=== PATIENT | female | born 1950 | race Caucasian/White ===

== ENCOUNTER → 2016-11-08 | Outpatient (CLI) | payer OTHER ==
[~2016-11-08] MED LIST: ALBU18002 INH; ALBUAER2 INH; ATV5 PO; AZEL0.15 NAE; CYCL0.052 OPB; DICL1SOL6 EXT; EFFSR150 PO; FLUT0.15 INH; FLX10 PO; GLC/500 PO; HYDR0.5T PO; HYDR25CA PO; IBUP-1459 PO; LEVO50TA6 PO; LVTUNK PO; MULTCHW PO; OXYC-57 PO; PANT40TA PO; PREMARIN VA; TURM1CAP4 PO; WELLBUTRIN PO
[2016-11-08 14:46] LABS: BASO % 0.7 %; BASO ABS # 0.04 K/uL (0-0.2); COMPLETE YES; EOS % 4.3 %; HEMATOCRIT 36.6 % (37-47); IG% 0.2 %; LYMPH % 43.1 %; LYMPH ABS # 2.52 K/uL (1.2-3.4); MEAN CELL VOLUME 88.6 fL (80-100); MEAN CORPUSCULAR HEMOGLOBIN 31.2 pg (25-34); MEAN CORPUSCULAR HGB CONC 35.2 g/dl (32-36); MEAN PLATELET VOLUME 9.3 fL (7.4-10.4); MONO % 8.4 %; NEUT % 43.3 %; PLATELET COUNT 302 K/uL (130-400); RED BLOOD COUNT 4.13 M/uL (4.2-5.4); WHITE BLOOD COUNT 5.85 K/uL (4.8-10.8)
[2016-11-08 15:14] LABS: BLOOD UREA NITROGEN 16 mg/dl (7-18); BUN/CREATININE RATIO 17.6 (10-20); CALCIUM 9.2 mg/dl (8.5-10.1); CARBON DIOXIDE 30 mmol/L (21-32); CHLORIDE 105 mmol/L (98-107); CREATININE 0.91 mg/dl (0.60-1.20); GLUCOSE 68 mg/dl (70-99); POTASSIUM 3.9 mmol/L (3.5-5.1); SODIUM 144 mmol/L (136-145)
== END | disposition home or self-care (01) ==
LOC: C.CPL 13:40
PROVIDERS: ATTEND Orthopaedic Surgery
DX: Z01.810 Encounter for preprocedural cardiovascular examination (principal); Z01.812 Encounter for preprocedural laboratory examination; M75.42 Impingement syndrome of left shoulder; R00.1 Bradycardia, unspecified

== ENCOUNTER → 2016-11-18 | Day surgery (SDC) | payer OTHER ==
[2016-11-11 09:54] VITALS: Ht 157.5 cm; Wt 63.6 kg
[~2016-11-18] VITALS: Ht 157.5 cm; Wt 63.6 kg
[~2016-11-18] MED LIST changes: -ALBUAER2 INH; +ATROPINE SULFATE 0.1 MG/ML 5ML SYR IV PRN; -ATV5 PO; +BUPIVACAINE/EPINEPHRINE 0.25% 1:200,000 30 ML VIAL ONE; +CLINDAMYCIN PHOS 150 MG/ML 2 ML VIAL IV SCH; +DEXAMETHASONE SOD INJ 4 MG/ML VIAL IV PRN; +DEXAMETHASONE SOD INJ 4 MG/ML VIAL ONE; -EFFSR150 PO; +EpHEDrine SULFATE INJ 50 MG/ML AMP IV PRN; +EpHEDrine SULFATE INJ 50 MG/ML AMP ONE; +EpINEphrine INJ 1MG/ML AMP 1 MG/ML AMP ONE; +FENTANYL CITRATE INJ 50 MCG/1 ML 2 ML VIAL IV PRN; +FENTANYL CITRATE INJ 50 MCG/1 ML 2 ML VIAL ONE; -FLX10 PO; -HYDR0.5T PO; -IBUP-1459 PO; +KETOROLAC TROMETHAMINE 30 MG/ML VIAL IV. PRN; +LABETALOL HCL IV 5 MG/ML 20ML IV PRN; +LACTATED RINGER'S 1000ML 1,000 ML IV SCH; +LACTATED RINGER'S 1000ML 500 ML IV SCH; +LIDOCAINE HCL 1% MPF 2 ML VIAL ONE; +LIDOCAINE HCL 2% 2 ML VIAL (20MG/ML) ONE; -LVTUNK PO; +METOCLOPRAMIDE HCL INJ 5 MG/ML 2 ML VIAL IV PRN; +METOCLOPRAMIDE HCL INJ 5 MG/ML 2 ML VIAL ONE; +MIDAZOLAM HCL 1 MG/ML 2ML VIAL ONE; +MoRPHine SULFATE 10 MG/ML CARP/VIAL IV PRN; +ONDANSETRON INJ 2 MG/ML 2 ML VIAL IV PRN; +ONDANSETRON INJ 2 MG/ML 2 ML VIAL ONE; +OXYCODONE/ACETAMINOPHEN 5-325 TAB PO PRN; +PHENYLEPHRINE 100MCG/ML 5ML SYR IV PRN; +PROPOFOL IV EMULSION 10 MG/ML 20 ML VIAL IV ONE; +ROPIVACAINE 0.5% 5 MG/ML 30 ML VIAL ONE; +SODIUM CHLORIDE 0.9% 1000ML 1,000 ML IV SCH; -WELLBUTRIN PO
--- NOTE | 2016-11-18 08:53 | History & Physical Bridge - [place] ---
H&P Re-Evaluation Bridge Note: I have examined the patient, reviewed the History & Physical and in the interval since the performance of the History & Physical I have noted the following changes of clinical significance: No changes noted
--- NOTE | 2016-11-18 11:15 | [facility] Post Operative Brief Note ---
Immediate Operative Summary Operative Date Nov 18, 2016. Pre-Operative Diagnosis Left Shoulder Impingement and Biceps Tendinopathy Post-Operative Diagnosis Same Procedure(s) Performed Left Shoulder Arthroscopy, Small Rotator Cuff Repair, Acromioplasty, Biceps Tenotomy, Distal Clavicle Resection Surgeon Dr. Boone Barrel Washer Surgeon(s) Rafaela Sadler PA-C Estimated Blood Loss Minimal Findings as above Specimens None Complication(s) None Disposition Recovery Room / PACU
--- NOTE | 2016-11-18 11:19 | Discharge Instructions-SurgCtr ---
Discharge Instructions Date of Service Nov 18, 2016. Visit Reason for Visit: Left Shoulder Impingement Syndrome Biceps Tendinit Discharge Discharge Diagnosis / Problem: SAME ABOVE Discharge Goals Goal(s): Decrease discomfort, Improve function Medications Stopped Medications Name(s): metformin last dose tuesday Restart Stopped Medication(s): DECEMBER RESTART 11/19/2016 Activity Recommendations Activity Limitations: as noted below Lifting Limitations: until after follow-up appointment Exercise/Sports Limitations: until after follow-up appointment Shower/Bathe: tomorrow Anesthesia . Post Anesthesia Instructions: If you have had General Anesthesia or IV Sedation: * Do not drive today. * Resume driving when surgeon permits. * Do not make important decisions or sign legal documents today. * Call surgeon for: 1. Temperature elevations greater than 101 degrees F. 2. Uncontrollable pain. 3. Excessive bleeding. 4. Persistent nausea and vomiting. 5. Medication intolerance (nausea, vomiting or rash). * For nausea and vomiting use only clear liquids such as: tea, soda, bouillon until nausea subsides, then gradually increase diet as tolerated. * If you have any concerns or questions, call your surgeon's office. If physician is unavailable and it is an emergency, call 911 or go to the nearest emergency room. . Instructions / Follow-Up Instructions / Follow-Up MEDICATIONS: * Resume previous medications unless instructed otherwise by your surgeon. * Always take pain medication on a full stomach or with food to avoid upset stomach. * Do not drink alcohol or drive while taking narcotics. * Ibuprofen or Tylenol may be taken if narcotic not needed. SPECIAL CARE INSTRUCTIONS: __ None _X_ Keep extremity elevated and iced x 48 hours; apply ice 20-30 minutes 8-10 times/day. May remove at night. _X_ Sling (MAY REMOVE AFTER 48 HOURS ONLY TO SHOWER AND FOR THERAPY) _X_24 hrs/day __ Remove at night __ Shoulder Immobilizer __ 24 hrs/day __ Remove at night _X_ Dressing __ Maintain until seen in office, may shower with plastic over site _X_ Remove dressings in 24-48 hours and then may shower _X_ Cover incisions with band-aids after showering __ Do not remove steri-strips Call physician if chills or temperature rises above 102 degrees or pain unrelieved by prescribed pain medications at . . Diet Recommendations Home Diet: no limitations Fluid Restriction: None Procedures Procedures Performed: Left Shoulder Arthroscopy, Small Rotator Cuff Repair, Acromioplasty, Biceps Tenotomy, Distal Clavicle Resection Pending Studies Studies pending at discharge: no Work Instructions Return To Work: after follow-up Lifting Limitations: NO LIFTING WITH LEFT ARM Medical Emergencies . Who to Call and When: Medical Emergencies: If at any time you feel your situation is an emergency, please call 911 immediately. . Non-Emergent Contact Non-Emergency issues call your: Primary Care Provider Call Non-Emergent contact if: you have a fever, temperature is above 101.5 . . "Provider Documentation" section prepared by Camron Sadler.
--- NOTE | 2016-11-18 11:24 | OPERATIVE REPORT ---
DATE OF OPERATION: 11/18/2016 PREOPERATIVE DIAGNOSIS: Severe external impingement with small rotator cuff tear, left shoulder. POSTOPERATIVE DIAGNOSIS: Same. PROCEDURE: Left shoulder diagnostic arthroscopy with extensive debridement, distal clavicle resection to include co-planing the undersurface of the clavicle, acromioplasty, small degenerative rotator cuff repair and biceps tenotomy. SURGEON: Dr. Jacques Boone. MACHINE STITCHER: Epifanio Sadler PA-C, whose assistance was necessary for positioning the arm and helping with instrumentation. ANESTHESIA: General with a left interscalene nerve block. COMPLICATIONS: None. CONDITION: Stable to PACU. INDICATIONS: Marlin is a pleasant 65-year-old female who presented to my office with a year long history of left shoulder pain. She did not have any traumatic event. MRI and clinical examination were diagnostic for severe external impingement and partial rotator cuff tear. After failing conservative treatment, she elected to undergo arthroscopy. DESCRIPTION OF PROCEDURE: On 11/18/2016, she arrived at [facility] for the above procedure. She was seen in the preoperative holding area and the operative extremity was identified and signed. She was given a preoperative antibiotic and a left interscalene nerve block. She was taken back to the operating room, laid on the table in supine position and put under general anesthesia. She was then put into the beachchair position. The left shoulder was prepped and draped in sterile fashion. Time-out was done and the patient and operative extremity was properly identified. A scope was introduced into the posterior portal. Diagnostic arthroscopy showed no cartilage damage to the humeral head or the glenoid. There was some fraying of the anterior and superior labrum. The biceps tendon was very red on the dorsal aspect. I did not see much tearing of the rotator cuff from the articular side. An anterior portal was made. A shaver was used to do a limited debridement of the intraarticular structures and the biceps tendon was arthroscopically tenotomized. The scope was then put into the subacromial space. A lateral portal was made. A shaver was used to do a complete subacromial and subdeltoid bursectomy. There was a lot of abrasive ruvalcaba underneath the anterior acromion on the rotator cuff. The coracoacromial ligament was teased off the undersurface of the acromion and a 5-0 nabeel was used to complete an acromioplasty of a Bigliani type 3 acromion. A shaver was used to remove any excess debris. There was very large osteophytes of the inferior aspect of the distal clavicle. A 5-0 nabeel was used to complete a distal clavicle resection to remove those inferior osteophytes. Attention was then turned to the rotator cuff. There was a small near full thickness degenerative rotator cuff tear. An additional anterolateral portal was made and Becky cannula was placed. The tuberosity was prepared with a ring curette. The rotator cuff was fixed with an Arthrex modified SpeedBridge configuration with a single 4.75-mm BioComposite SwiveLock suture anchor and 2 FiberTapes brought down to a lateral row SwiveLock suture anchor. This gave a nice knotless SpeedBridge repair. Multiple pictures were taken. The scope was placed back into the glenohumeral joint and the articular margin of the rotator cuff had been restored. Arthroscopic instruments were removed. Portal sites were closed with 3-0 nylon. She was then placed in a soft dressing and a regular arm sling. She was then extubated, transferred to a litter and taken to the postanesthesia care unit in stable condition. She tolerated the procedure well. I attest to the content of the Intraoperative Record and any orders documented therein. Any exceptio ns are noted below.
--- NOTE | 2016-11-18 12:00 | Anesthesia Progress Nt - [facility] ---
Anesthesia Post Op Note Date & Time Nov 18, 2016 at 11:59 Vital Signs Pain Intensity: 0 Vital Signs Past 12 Hours Date Time Temp Pulse Resp B/P Pulse Ox O2 Delivery O2 Flow Rate FiO2 11/18/16 11:44 36.5 73 16 102/59 99 Room Air 11/18/16 11:31 75 21 100 11/18/16 11:31 75 21 11/18/16 11:30 99/53 11/18/16 11:27 36.4 90 16 102/59 99 Mask 6 11/18/16 11:26 77 18 100 11/18/16 11:26 79 18 11/18/16 11:25 116/54 11/18/16 11:21 74 17 11/18/16 11:21 74 17 100 11/18/16 11:20 121/55 11/18/16 11:19 102/59 11/18/16 10:06 65 8 100 11/18/16 10:06 65 11/18/16 10:05 62 11 100 11/18/16 10:05 62 11/18/16 10:00 64 11/18/16 10:00 65 0 103/59 100 11/18/16 09:55 74 25 95 11/18/16 09:55 63 25 11/18/16 09:52 94/49 11/18/16 09:45 56 11/18/16 09:45 57 99 11/18/16 09:40 66 99 11/18/16 09:40 60 11/18/16 09:35 56 17 11/18/16 09:35 59 17 98 11/18/16 09:30 52 23 100 11/18/16 09:30 53 23 11/18/16 08:50 36.8 59 16 112/48 97 Room Air Notes Mental Status: alert / awake / arousable, participated in evaluation Pt Amnestic to Procedure: Yes Nausea / Vomiting: adequately controlled Pain: adequately controlled Airway Patency, RR, SpO2: stable & adequate BP & HR: stable & adequate Hydration State: stable & adequate Anesthetic Complications: no major complications apparent
[2016-11-18 12:10] VITALS: TEMP 36.5
[2016-11-18 12:33] VITALS: BP 96/49; PULSE 69; O2SAT 97
== END | disposition home or self-care (01) ==
LOC: X.SURG 08:30
PROVIDERS: ATTEND Orthopaedic Surgery
DX: M75.102 Unspecified rotator cuff tear or rupture of left shoulder, not specified as traumatic (principal); M75.42 Impingement syndrome of left shoulder; E11.9 Type 2 diabetes mellitus without complications; E03.9 Hypothyroidism, unspecified; Z80.8 Family history of malignant neoplasm of other organs or systems; Z98.890 Other specified postprocedural states; Z98.51 Tubal ligation status; Z88.0 Allergy status to penicillin; Z88.8 Allergy status to other drugs, medicaments and biological substances

== ENCOUNTER 2024-09-19 10:35 | Inpatient (IN) ==
--- NOTE | 2024-08-06 15:02 | PAT Medication Instructions ---
Medication Instructions Date of Service August 06, 2024 Home Medications Medication Instructions Recorded clonazepam 0.5 mg tablet 0.75 mg (1.5 x 0.5 mg) PO .qhs #45 06/26/24 tabs citalopram 20 mg tablet 20 mg PO QAM cyclosporine 0.05 % eye drops in a dropperette (Restasis) 1 drp ophthalmic (eye) Q12H esomeprazole magnesium 40 mg capsule,delayed release 40 mg PO QAM rosuvastatin 10 mg tablet 10 mg PO QPM temazepam 15 mg capsule 15 mg PO QPM clonazepam 0.5 mg tablet 0.75 mg (1.5 x 0.5 mg) PO .qhs acetaminophen 325 mg tablet (Tylenol) 325 mg PO QID PRN diclofenac sodium 1 % topical gel 4 g topical QID PRN etanercept 50 mg/mL (1 mL) subcutaneous syringe (Enbrel) 1 mg subcut WK fluticasone propionate 50 mcg/actuation nasal spray,suspension 1 spray intranasal BID levocetirizine 5 mg tablet 5 mg PO QAM meclizine 12.5 mg tablet 12.5 mg PO BID PRN metformin 500 mg tablet 500 mg PO BID ASK your prescriber and surgeon etanercept 50 mg/mL (1 mL) subcutaneous syringe (Enbrel) 1 mg subcut WK STOP taking 24 hours before surgery diclofenac sodium 1 % topical gel 4 g topical QID PRN DO NOT take the morning of surgery levocetirizine 5 mg tablet 5 mg PO QAM metformin 500 mg tablet 500 mg PO BID Take morning of surgery With a small sip of water, OTHERWISE NOTHING TO EAT OR DRINK AFTER MIDNIGHT: citalopram 20 mg tablet 20 mg PO QAM cyclosporine 0.05 % eye drops in a dropperette (Restasis) 1 drp ophthalmic (eye) Q12H esomeprazole magnesium 40 mg capsule,delayed release 40 mg PO QAM acetaminophen 325 mg tablet (Tylenol) 325 mg PO QID PRN(if needed) fluticasone propionate 50 mcg/actuation nasal spray,suspension 1 spray intranasal BID meclizine 12.5 mg tablet 12.5 mg PO BID PRN(if needed) Take evening before surgery cyclosporine 0.05 % eye drops in a dropperette (Restasis) 1 drp ophthalmic (eye) Q12H rosuvastatin 10 mg tablet 10 mg PO QPM temazepam 15 mg capsule 15 mg PO QPM clonazepam 0.5 mg tablet 0.75 mg (1.5 x 0.5 mg) PO .qhs acetaminophen 325 mg tablet (Tylenol) 325 mg PO QID PRN(if needed) fluticasone propionate 50 mcg/actuation nasal spray,suspension 1 spray intranasal BID metformin 500 mg tablet 500 mg PO BID Other Notes If you have any questions please call us at [phone] or [phone] or [phone] or [phone]
--- NOTE | 2024-08-14 14:20 | Anesthesiology Consultation ---
Date of Service August 14, 2024 Assessment & Plan (1) Encounter for pre-operative examination: Chart Review Chart Review: Acceptable Risk for Surgery (pending surgeon ordered PCP clearance ) and Patient seen in Pre Admission Testing - Awaiting PCP clearance ([facility]) - please fax preop testing to PCP office - Check BSG AM DOS Per PAT appt on 08/14/24, no recent illness/disease exposures, illness related symptoms, or recent illness/disease positive tests. Will leave to surgeon's discretion if preop Covid testing needed Teaching & Discussion Pre-Anesthesia Teaching/Discussion Notes: Instructed NPO after midnight before surgery,except medications with 15 cc of water. Medication instructions provided according to the PAT guidelines. History Surgery Operation Date: 09/14/24 07:45 Proposed Procedures p T11-T12 Decompression and Fusion with Spinal Cord Monitoring - Josep Oneil, Height/Weight Height: 5 ft 2 in Weight: 63.4 kg Allergies Allergy/AdvReac Type Severity Reaction Status Date / Time Sulfa (Sulfonamide Allergy Severe Hallucinati Verified 08/06/24 10:30 Antibiotics) ng amoxicillin Allergy Intermediate HIVES Verified 08/06/24 10:30 cefaclor Allergy Intermediate RASH? Verified 08/06/24 10:30 clavulanic acid Allergy Intermediate HIVES Verified 08/06/24 10:30 gabapentin Allergy Intermediate RASH Verified 08/06/24 10:30 nortriptyline Allergy Intermediate Gastrointestinal Verified 08/06/24 10:30 Upset Penicillins Allergy Intermediate HIVES- Verified 08/06/24 10:[address] KUMAR 10/01/11 ropinirole Allergy Intermediate Unknown Verified 08/06/24 10:55 tramadol Allergy Intermediate Gastrointestinal Verified 08/06/24 10:30 Upset clindamycin AdvReac Intermediate Gastrointestinal Verified 08/06/24 10:30 Upset codeine AdvReac Intermediate SEE'S Verified 08/06/24 10:30 THINGS Medications Home Medications Medication Instructions Recorded Confirmed Last Taken citalopram 20 mg tablet 20 mg PO QAM 11/01/23 08/06/24 Unknown cyclosporine 0.05 % eye drops in a 1 drp ophthalmic (eye) Q12H 11/01/23 08/06/24 Unknown dropperette (Restasis) esomeprazole magnesium 40 mg 40 mg PO QAM 11/01/23 08/06/24 Unknown capsule,delayed release rosuvastatin 10 mg tablet 10 mg PO QPM 11/01/23 08/06/24 Unknown temazepam 15 mg capsule 15 mg PO QPM 11/01/23 08/06/24 Unknown clonazepam 0.5 mg tablet 0.75 mg (1.5 x 0.5 mg) PO .qhs #45 06/26/24 08/06/24 Unknown tabs acetaminophen 325 mg tablet 325 mg PO QID PRN Pain 08/06/24 08/06/24 Unknown (Tylenol) diclofenac sodium 1 % topical gel 4 g topical QID PRN Pain 08/06/24 08/06/24 Unknown etanercept 50 mg/mL (1 mL) 1 mg subcut WK 08/06/24 08/06/24 Unknown subcutaneous syringe (Enbrel) fluticasone propionate 50 1 spray intranasal BID 08/06/24 08/06/24 Unknown mcg/actuation nasal spray,suspension levocetirizine 5 mg tablet 5 mg PO QAM 08/06/24 08/06/24 Unknown meclizine 12.5 mg tablet 12.5 mg PO BID PRN Dizziness 08/06/24 08/06/24 Unknown metformin 500 mg tablet 500 mg PO BID 08/06/24 08/06/24 Unknown Past Medical History Medical History (Updated 08/16/24 @ 08:30 by Meghan Hathaway PA-C) Anxiety Back pain Depression Diabetes NIDDM GERD (gastroesophageal reflux disease) well controlled and stable History of anesthesia reaction woke up in middle of tubal ligation and vomited History of COVID-2019- symptoms resolved History of postoperative nausea and vomiting Hypothyroidism resolved was on meds and since d/c'ed Summer 2023 TSH WNL 08/14/24 Limb tremor left foot > related to back pain Migraine on occasion Rheumatoid arthritis follows rheum stable Right shoulder pain RLS (restless legs syndrome) Exercise / Class Metabolic Activity II 4-5 Yardwork/Stairs/Walk up hill (one flight of stairs - no chest pain or SOB ) Past Family History Family History Father Cancer Mother Myocardial infarction Parkinson disease Sister Tardive dyskinesia Retarded development following protein-calorie malnutrition Other Colorectal cancer Diabetes Stroke Past Surgical History Surgical History History of bunionectomy of both great toes History of carpal tunnel release right History of cataract surgery left History of colonoscopy History of esophagogastroduodenoscopy (EGD) History of hysterectomy History of myringotomy History of repair of rotator cuff right Hx of breast biopsy benign Hx of tonsillectomy Hx of tubal ligation Past Anesthesia History No Hx of Anesthesia Complications (with exception PONV ) and No Family Hx of Anesthesia Complications History of PONV History of PONV (improved with anti-nausea medication ) and Hx of Motion Sickness Social History Smoking Status: Former smoker Do You Dip or Chew Tobacco: No Smoking End Date: Hx Alcohol Use: No Hx Substance Use: No substance use type: does not use Review of Systems Patient denies chest pain, shortness of breath, dyspnea on exertion, cough, wheezing, palpitations. No hx of seizures, stroke, LA, apnea/snoring. No hx of blood clots or blood transfusions Physical Exam Vital Signs VITALS BP 105/64 P 67 TEMP 98.1 SP02 96% RESP 16 Constitutional no acute distress ENMT Mouth: no TMJ clicking Thyromental Distance: > or= 3.5 Finger Breadths (3.5) Mallampati Class: III Neck + limited neck extension Respiratory normal respiratory effort; no respiratory distress Auscultation: lungs clear to auscultation bilaterally; no wheezes Cardiovascular Rate/Rhythm: regular rate and regular rhythm Heart Sounds: no murmur Vessels: no carotid bruit Musculoskeletal Spine: no pain with cervical ROM Extremities: extremities normal to inspection Psychiatric Orientation: alert Lab Results Anesthesia Preop Results Results Anesthesia Widget: WBC 6.71 K/ul (4.8-10.8) 08/14/24 Hgb 13.3 g/dl (12.0-16.0) 08/14/24 Hct 39.3 % (37.0-47.0) 08/14/24 Plt 249 K/uL (130-400) 08/14/24 Na 139 mmol/L (136-145) 08/14/24 K 4.2 mmol/L (3.5-5.1) 08/14/24 Cl 105 mmol/L (98-107) 08/14/24 CO2 28 mmol/L (21-32) 08/14/24 BUN 19 mg/dl (6-23) 08/14/24 Creat 0.98 mg/dl (0.6-1.2) 08/14/24 Glucose Level 139 mg/dl (70-99(Fasting)) H 08/14/24 PT 10.0 Seconds (9.0-12.0) 08/14/24 PTT 26 Seconds (21-31) 08/14/24 INR 0.9 (0.9-1.1) 08/14/24 TSH 2.570 uIu/ml (0.300-4.500) 08/14/24 HA1c 7.5 % (4.5-5.6) H 08/14/24 Urine Color Yellow 08/14/24 Urine Appearance Clear (Clear) 08/14/24 Urine pH 5.0 (4.5-7.5) 08/14/24 Urine Specific Campus 1.022 (1.000-1.030) 08/14/24 Urine Protein Negative (Negative) 08/14/24 Urine Glucose (UA) Trace (Negative) H 08/14/24 Urine Ketones Negative (Negative) 08/14/24 Urine Blood 1+ (Negative) H 08/14/24 Urine Nitrite Negative (Negative) 08/14/24 Urine Bilirubin Negative (Negative) 08/14/24 Urine Urobilinogen Negative (Negative) 08/14/24 Urine Leukocyte Esterase Negative (Negative) 08/14/24 Urine WBC (Auto) 0-5 /hpf (0-5) 08/14/24 Urine RBC (Auto) 6-10 /hpf (0-2) H 08/14/24 Urine Hyaline Casts (Auto) 0-2 /lpf (0-2) 08/14/24 Urine Epithelial Cells (Auto) 0-2 /hpf (0-2) 08/14/24 Urine Bacteria (Auto) None Seen (None Seen) 08/14/24 Blood Type A Positive 08/14/24 Antibody Screen NEGATIVE 08/14/24 Testing Electrocardiogram Date: 08/14/24 Findings: + NSR @ (65bpm ) Low voltage QRS Cannot rule out anterior infarct, age undetermined When compared to EKG from November 08, 2016- no significant change was found per cardio Chest X-Ray Date: 08/14/24 FINDINGS: Streaky opacities are noted in the left lower lung, likely reflecting subsegmental atelectasis versus scarring. Lungs are otherwise clear with no pulmonary infiltrate or pleural effusion. Cardiomediastinal silhouette is within normal limits. Degenerative changes are present in the spine. IMPRESSION: No acute cardiopulmonary disease. Cervical Spine Date: 08/14/24 [id number] cervical spondylosis. No evidence of instability on the flexion-extension views.
[~2024-09-19 10:35] MED LIST changes: -ALBU18002 INH; -ATROPINE SULFATE 0.1 MG/ML 5ML SYR IV PRN; -AZEL0.15 NAE; -BUPIVACAINE/EPINEPHRINE 0.25% 1:200,000 30 ML VIAL ONE; -CLINDAMYCIN PHOS 150 MG/ML 2 ML VIAL IV SCH; -CYCL0.052 OPB; -DEXAMETHASONE SOD INJ 4 MG/ML VIAL IV PRN; -DICL1SOL6 EXT; -EpHEDrine SULFATE INJ 50 MG/ML AMP IV PRN; -EpHEDrine SULFATE INJ 50 MG/ML AMP ONE; -EpINEphrine INJ 1MG/ML AMP 1 MG/ML AMP ONE; -FENTANYL CITRATE INJ 50 MCG/1 ML 2 ML VIAL IV PRN; -FENTANYL CITRATE INJ 50 MCG/1 ML 2 ML VIAL ONE; -FLUT0.15 INH; -GLC/500 PO; +GLYCOPYRROLATE 0.2 MG/ML VIAL ONE; -HYDR25CA PO; -KETOROLAC TROMETHAMINE 30 MG/ML VIAL IV. PRN; -LABETALOL HCL IV 5 MG/ML 20ML IV PRN; -LACTATED RINGER'S 1000ML 1,000 ML IV SCH; -LACTATED RINGER'S 1000ML 500 ML IV SCH; -LEVO50TA6 PO; +LIDOCAINE 2% 2 ML VIAL/AMP(20MG/ML) INFIL ONE; -LIDOCAINE HCL 1% MPF 2 ML VIAL ONE; -LIDOCAINE HCL 2% 2 ML VIAL (20MG/ML) ONE; -METOCLOPRAMIDE HCL INJ 5 MG/ML 2 ML VIAL IV PRN; -METOCLOPRAMIDE HCL INJ 5 MG/ML 2 ML VIAL ONE; -MULTCHW PO; -MoRPHine SULFATE 10 MG/ML CARP/VIAL IV PRN; -ONDANSETRON INJ 2 MG/ML 2 ML VIAL IV PRN; -OXYC-57 PO; -OXYCODONE/ACETAMINOPHEN 5-325 TAB PO PRN; -PANT40TA PO; -PHENYLEPHRINE 100MCG/ML 5ML SYR IV PRN; -PREMARIN VA; +ROCURONIUM BROMIDE 10 MG/ML 5 ML VIAL IV ONE; -ROPIVACAINE 0.5% 5 MG/ML 30 ML VIAL ONE; -SODIUM CHLORIDE 0.9% 1000ML 1,000 ML IV SCH; +SUGAMMADEX SODIUM 200 MG/2 ML VIAL IV ONE; -TURM1CAP4 PO; +fentaNYL citrate PF 100 MCG/2 ML VIAL ONE
[2024-09-19] MEDS: LR 15ML/HR IV SCH (11:29)
[2024-09-19] MEDS: VANCOMYCIN HCL 1,000 MG/270 ML BAG IV SCH (11:30)
[2024-09-19] MEDS: ACETAMINOPHEN 500 MG TAB PO SCH (11:30)
[2024-09-19] MEDS: CeleBREX 200 MG CAP PO SCH (11:30)
[2024-09-19] MEDS: LR 60ML/HR IV SCH (11:32)
[2024-09-19] MEDS ORDERED: ATROPINE SULFATE 0.1 MG/ML 10ML SYR IV PRN (11:39)
[2024-09-19] MEDS ORDERED: ePHEDrine sulfate 50 MG/ML AMP IV PRN (11:39)
[2024-09-19] MEDS ORDERED: ONDANSETRON INJ 2 MG/ML 2 ML VIAL IV PRN (11:39)
[2024-09-19] MEDS ORDERED: PROMETHAZINE HCL 6.25 MG in SODIUM CHLORIDE 0.9% 50 ML IV PRN (11:39)
--- NOTE | 2024-09-19 12:12 | History & Physical Bridge Note ---
Date of Service September 19, 2024 History & Physical Bridge Note I have examined the patient, reviewed the History & Physical and in the interval since the performance of the History & Physical I have noted the following changes of clinical significance: no changes noted
--- NOTE | 2024-09-19 12:16 | History & Physical Report ---
Date of Service September 19, 2024 Assessment & Plan (1) Thoracic disc herniation: Plan: T11-T12 decompression and fusion History of Present Illness Chief Complaint: Back pain Primary Care Provider: Suzie Mason PA-C This is a 73-year-old female who presents for chronic assistance pain after failing course of nonoperative care is here for surgical invention. Allergies Allergy/AdvReac Type Severity Reaction Status Date / Time Sulfa (Sulfonamide Allergy Severe Hallucinati Verified 09/19/24 11:07 Antibiotics) ng amoxicillin Allergy Intermediate HIVES Verified 09/19/24 11:07 cefaclor Allergy Intermediate RASH? Verified 09/19/24 11:07 clavulanic acid Allergy Intermediate HIVES Verified 09/19/24 11:07 gabapentin Allergy Intermediate RASH Verified 09/19/24 11:07 nortriptyline Allergy Intermediate Gastrointestinal Verified 09/19/24 11:07 Upset Penicillins Allergy Intermediate HIVES- Verified 09/19/24 11:[address] KUMAR 10/01/11 ropinirole Allergy Intermediate Unknown Verified 09/19/24 11:07 tramadol Allergy Intermediate Gastrointestinal Verified 09/19/24 11:07 Upset clindamycin AdvReac Intermediate Gastrointestinal Verified 09/19/24 11:07 Upset codeine AdvReac Intermediate SEE'S Verified 09/19/24 11:07 THINGS Home Medications Medication Instructions Recorded Confirmed Type citalopram 20 mg tablet 20 mg PO QAM 11/01/23 09/19/24 History cyclosporine 0.05 % eye drops in a 1 drp ophthalmic (eye) Q12H 11/01/23 09/19/24 History dropperette (Restasis) esomeprazole magnesium 40 mg 40 mg PO QAM 11/01/23 09/19/24 History capsule,delayed release rosuvastatin 10 mg tablet 10 mg PO QPM 11/01/23 09/19/24 History temazepam 15 mg capsule 15 mg PO QPM 11/01/23 09/19/24 History clonazepam 0.5 mg tablet 0.75 mg (1.5 x 0.5 mg) PO .qhs #45 06/26/24 09/19/24 Rx tabs acetaminophen 325 mg tablet 325 mg PO QID PRN Pain 08/06/24 09/19/24 History (Tylenol) diclofenac sodium 1 % topical gel 4 g topical QID PRN Pain 08/06/24 09/19/24 History etanercept 50 mg/mL (1 mL) 1 mg subcut WK 08/06/24 09/19/24 History subcutaneous syringe (Enbrel) fluticasone propionate 50 1 spray intranasal BID 08/06/24 09/19/24 History mcg/actuation nasal spray,suspension levocetirizine 5 mg tablet 5 mg PO QAM 08/06/24 09/19/24 History meclizine 12.5 mg tablet 12.5 mg PO BID PRN Dizziness 08/06/24 09/19/24 History glipizide 2.5 mg tablet 2.5 mg PO QAM 09/17/24 09/19/24 History Past Med/Surg History Problem List (Updated 09/19/24 @ 12:14 by Josep Oneil DO) Thoracic disc herniation RLS (restless legs syndrome) Lumbar radiculopathy Limb tremor Numbness and tingling of left lower extremity Arthritis Back pain Left shoulder pain Left rotator cuff tear Medical History (Updated 09/19/24 @ 12:14 by Josep Oneil DO) Right shoulder pain Back pain History of anesthesia reaction woke up in middle of tubal ligation and vomited History of postoperative nausea and vomiting GERD (gastroesophageal reflux disease) well controlled and stable Depression Anxiety Migraine on occasion History of COVID-2019- symptoms resolved Limb tremor left foot > related to back pain RLS (restless legs syndrome) Hypothyroidism resolved was on meds and since d/c'ed Summer 2023 TSH WNL 08/14/24 Rheumatoid arthritis follows rheum stable Diabetes NIDDM Surgical History History of carpal tunnel release right History of cataract surgery left History of myringotomy History of esophagogastroduodenoscopy (EGD) History of colonoscopy History of hysterectomy History of repair of rotator cuff right History of bunionectomy of both great toes Hx of tubal ligation Hx of breast biopsy benign Hx of tonsillectomy Family History Father Cancer Mother Myocardial infarction Parkinson disease Sister Tardive dyskinesia Retarded development following protein-calorie malnutrition Other Colorectal cancer Diabetes Stroke Social History (Updated 11/01/23 @ 09:22 by EZRA Romo) Smoking Status: Former smoker Tobacco Type: Cigarettes Age Quit Using Tobacco: 43; Smoking End Date: ; Second Hand Exposure: No; Do You Dip or Chew Tobacco: No; Tobacco Cessation Education Requested by Patient: No Hx Alcohol Use: No Hx Substance Use: No Preferred Language: [place]ian Communication Ability: Effective Health Manager Required: No Beliefs That Will Affect Care: None marital status: Current Living Situation: Spouse current occupational status: retired Other Information That Helps Us Care for You: No Feels Safe at Home: Yes Safety Concerns: Feels Safe At This Time Assistive Devices: Glasses Physical Exam Physical Exam: Patient is alert and oriented Heart regular rhythm lungs clear Results & Data Results & Data Vital Signs (Past 12 Hours) Vital Signs Temp Pulse Resp BP Pulse Ox O2 Del Method 09/19/24 11:05 36.7 C 63 20 129/61 95 Room Air
[2024-09-19] MEDS: BUPIVACAINE/EPINEPHRINE 0.25% 1:200,000 30 ML VIAL ONE (13:18)
[2024-09-19] MEDS ORDERED: fentaNYL citrate PF 100 MCG/2 ML VIAL ONE (13:35)
[2024-09-19] MEDS: FLOSEAL HEMOSTATIC MATRIX 10ML TOP ONE (13:54)
--- NOTE | 2024-09-19 13:57 | Operative Report ---
Post Operative Report Pre & Post Diagnosis Operation Date: 09/19/24 12:15 Pre-Op Diagnosis: #1 thoracic disc herniation with radiculopathy #2 thoracic spinal stenosis Post-Op Diagnosis: Same I identified the patient and participated in the time-out.: Yes Procedure Operation Date: 09/19/24 12:15 Actual Procedures #1 thoracic decompression with bilateral medial facetectomies and foraminotomies T11-T12. #2 posterior spinal fusion T11-T12. #3 placed posterior instrumentation T11-T12. #4 placement of local autograft in the posterior gutters. #5 placement infuse collagen sponge combined with Koros in the posterior lateral gutters T11-T12. Surgeon Josep Oneil, Chief Medical Director Fracnheska Mcdonald Estimated Blood Loss 50 Findings Consistent with Post-Op Diagnosis Specimens None Indications This is a 73-year-old female with presents with chronic persistent thoracic radiculopathy is here for surgical intervention. Description of Procedure Patient was met with identified informed consent obtained. Patient was then taken to the operative suite underwent intubation placed in a prone position on the Rayo table atop the Nasim frame. All bony promises well-padded eyes inspected to ensure no external pressure placed upon them. This point the thoracic spine was prepped and draped no sterile fashion. With assistance of fluoroscopy notified the teeth [address] Sharp dissection with the assistance of Bovie cautery performed down to and exposing the lamina and trans verse processes of T11 and T12. For caudal cephalad fashion complete laminectomy of T11 was performed as well as partial laminectomy of T12 with bilateral medial facetectomies and foraminotomies to address all neural foraminal disease and stenosis. I explored the lateral recess on the right for any remaining disc fragments. Pedicle screws then placed in T11-T12 bilaterally with assistance of fluoroscopy process niles locked into position. Transverse processes of T11-T12 were then burred to subcortical bleeding bone. Infuse collagen sponge, with Koros and local autograft placed in the posterior lateral gutters. 15 round EDUARDO drain inserted. The incision was then closed with 1 Vicryl the fascia 2-0 Vicryl subcutaneously and 4 Monocryl for final closure. Steri-Strips sterile dressing placed. Patient waken taken PACU stable condition. Please note spinal cord monitoring was utilized procedure no changes noted. Francheska Mcdonald was present at the entire surgery involved the patient positioning complex course of the surgery and possible closure. I attest to the content of the Intraoperative Record and any orders documented therein. Any exceptions are noted below.
--- NOTE | 2024-09-19 14:04 | Fluoroscopy Report ---
FL thoracic spine 2V CLINICAL HISTORY: T11-T12 DECOMPRESSION AND FUSION COMPARISON STUDY: None. FLUOROSCOPY TIME: 38 seconds. Ka,r: 9.78 mGy FLUOROSCOPIC IMAGES: 2 FINDINGS: Exact localization is not possible given partial visualization of the spine. These images d emonstrate a decompression with 2 level bilateral pedicle screw fusion. Hardware is intact. Surgical drain is in place. There are no unexpected radiopaque foreign bodies. IMPRESSION: Fluoroscopy provided during decompression and fusion within the thoracic spine, as descr ibed above. ACT 112: Negative or not required by law. Electronically signed by: Joaquin Guillen M.D. 09/19/2024 2:03 PM
[2024-09-19] MEDS: fentaNYL citrate PF 100 MCG/2 ML VIAL IV PRN (14:31)
[2024-09-19] MEDS: HYDROmorphone INJ 2 MG/ML SYR/VIAL IV PRN (14:52)
--- NOTE | 2024-09-19 15:35 | Anesthesiology Progress Note ---
Date of Service September 19, 2024 Anesthesia Post Procedure Vital Signs Vital Signs: Temp Pulse Pulse Resp BP Pulse Ox O2 Del Method 09/19/24 15:30 68 18 104/52 L 95 Oxymask 09/19/24 15:20 36.3 C L 68 24 111/50 L 98 Oxymask 09/19/24 15:10 70 17 119/51 L 94 Oxymask 09/19/24 15:00 77 19 134/63 99 Oxymask 09/19/24 14:50 75 16 123/53 L 96 Oxymask 09/19/24 14:40 75 14 130/64 90 Oxymask 09/19/24 14:30 77 16 138/67 98 Oxymask 09/19/24 14:20 77 14 145/57 H 99 Oxymask 09/19/24 14:10 36.3 C L 70 16 123/58 L 97 Oxymask 09/19/24 11:05 36.7 C 63 20 129/61 95 Room Air O2 Flow Rate 09/19/24 15:30 2 09/19/24 15:20 2 09/19/24 15:10 2 09/19/24 15:00 5 09/19/24 14:50 5 09/19/24 14:40 5 09/19/24 14:30 5 09/19/24 14:20 5 09/19/24 14:10 5 09/19/24 11:05 Pain Intensity Back: Pain Intensity: 7 Transfer of Care Handoff Completed per policy Notes Mental Status: alert / awake / arousable and participated in evaluation Patient Amnestic to Procedure: Yes Nausea / Vomiting: adequately controlled Pain: adequately controlled Airway Patency, RR, SpO2: stable & adequate BP & HR: stable & adequate Hydration State: stable & adequate Anesthetic Complications: no major complications apparent
[2024-09-19] MEDS ORDERED: VANCOMYCIN CONSULT ACTIVE PRN (15:55)
[2024-09-19] MEDS ORDERED: bisacodyL 10 MG SUPP PR PRN (15:55)
[2024-09-19] MEDS ORDERED: FAMOTIDINE 20 MG TAB PO PRN (15:55)
[2024-09-19] MEDS ORDERED: SOD PHOSPHATE/SOD BIPHOSPHATE ENEMA 132 ML BTL PR PRN (15:55)
[2024-09-19] MEDS ORDERED: MECLIZINE 12.5 MG TAB PO PRN (15:55)
[2024-09-19] MEDS ORDERED: DO NOT ADMINISTER FLU VACCINE PRN (15:55)
[2024-09-19] MEDS ORDERED: ONDANSETRON 4 MG OD TAB PO PRN (15:55)
[2024-09-19] MEDS ORDERED: PHARMACY GLYCEMIC MGMT CONSULT PRN (15:55)
[2024-09-19] MEDS ORDERED: hydrOXYzine HCl 25 MG TAB PO PRN (15:55)
[2024-09-19] MEDS ORDERED: HYDROCODONE/ACETAMOPHEN 5/325MG TAB PO PRN (15:55)
[2024-09-19] MEDS ORDERED: LORazepam 2 MG/1 ML VIAL IV PRN (15:55)
[2024-09-19] MEDS ORDERED: DO NOT ADMINISTER PNEUMOCOCCAL VACCINE PRN (15:55)
[2024-09-19] MEDS ORDERED: ALUMINUM/MAGNESIUM SUSP 30 ML UDC PO PRN (15:55)
[2024-09-19] MEDS ORDERED: diphenhydrAMINE Capsule 25 MG CAP PO PRN (15:55)
[2024-09-19] MEDS ORDERED: LORazepam 0.5 MG TAB PO PRN (15:55)
[2024-09-19] MEDS ORDERED: MAGNESIUM HYDROXIDE SUSP 30 ML UDC PO PRN (15:55)
[2024-09-19] MEDS ORDERED: PROMETHAZINE 12.5 MG/50.5 ML BAG IV PRN (15:55)
[2024-09-19] MEDS ORDERED: ACETAMINOPHEN 1,000 MG/100 ML VIAL IV PRN (15:55)
[2024-09-19] MEDS ORDERED: METOCLOPRAMIDE HCL INJ 5 MG/ML 2 ML VIAL IV PRN (15:55)
--- NOTE | 2024-09-19 16:17 | Consultation ---
<Statement entered by Jesus Martins, DO - 09/19/24 17:46> I have seen and examined the patient and have discussed the case with the advance practice provider. I have reviewed the advanced practitioner's documentation, and I agree with, and take responsibility for that plan of care. By the time of my evaluation patient had received Narcan and was already starting to arouse. Patient would immediately open eyes when you call her name, would lift her head to answer simple questions but would quickly fall back to sleep. Vital signs stable. Recommended continuing pulse oximetry monitoring Limited narcotics due to patient's previous intolerance of them in the past. Family at bedside updated. Further plan of care as outlined below I spent a total of 15 minutes coordinating, documenting, and providing care for this patient excluding time spent by another provider/QHP. Date of Consultation September 19, 2024 Assessment & Plan (1) Thoracic disc herniation: (2) Diabetes: (3) Rheumatoid arthritis: This is a 73 yr old F who has a significant PMH of T2DM, Hypothyroidism, Depression with anxiety, RLS, rheumatoid arthritis who presents for elective lumbar procedure by Dr. Oneil. She underwent T11-T12 decompression fusion and tolerated the procedure well. Thoracic disc herniation S/P T11-T12 decompression/fusion by Dr. Oneil, POD#0 Post operatively pt was very sedated, drowsy and respirations were diminished She received 100mcg of fentanyl and 2mg IV dilaudid prior to arrival to the floor Per family member pt had adverse rxn to dilaudid in the past 0.5mg of IV Narcan was administered, pts vital signs remained stable and she was saturating normally on supplemental O2 at 3L post narcan pt became more arousable and was responsive to verbal cues - will continue to monitor as pt seems to be improving significantly with Narcan, likely over medicated post operatively VS q15min x4, q1hx4 and q4h x4 then resume per protocol continue pulse ox for the new 4 hours T2DM pre op a1c was 7.5 on glipizide insulin per glycemic pharmacy, appreciate their assistance RA pt on enbrel med list provided by family also stated hydroxychloroquine, but unable to verify with pt Anxiety pt with scheduled clonazepam confirmed via pdmp DVT ppx: SCDS FULL CODE PCP: [facility] Dispo: per primary I was unable to verify pts med list due to drowsy state post operatively. Due to being out of the area I am unable to verify it with pharmacy or external records. It will need to be reviewed with pt in a.m. when more arouseable Thank you for this consultation. We will follow the patient with you during their hospital stay. You can reach a member of the [facility] Hospitalist Team 21/03 via hospitalist role on tiger text. I spent a total of 60 minutes coordinating, documenting and providing care for this patient excluding time spent in the performance of separately billed services or time spent by another provider/QHP. Pt was seen and examined in collaboration with Dr. Martins, please see addendum History of Present Illness Requesting Physician: Dr. Oneil Reason for Consultation: Dr. Oneil Attending Physician: Josep Oneil, DO History of Present Illness This is a 73 yr old F who has a significant PMH of T2DM, Hypothyroidism, Depression with anxiety, RLS, rheumatoid arthritis who presents for elective lumbar procedure by Dr. Oneil. She underwent T11-T12 decompression fusion and tolerated the procedure well. Postoperatively patient was complaining of pain. She received significant IV narcotics postoperatively including 100 mcg of fentanyl and 2 mg of Dilaudid. Multiple family numbers are at bedside including and 2 daughters. They are very concerned given patient's drowsiness and confusion. They report never seen her like this. The 1 daughter states that a family member who is a nurse practitioner just reported that patient had a previous adverse reaction to Dilaudid. Patient is unable to answer any my questions appropriately. Nurse AIYANA at bedside. Allergies Allergy/AdvReac Type Severity Reaction Status Date / Time hydromorphone [From Dilaudid] Allergy Severe obtunded Verified 09/19/24 17:09 Sulfa (Sulfonamide Allergy Severe Hallucinati Verified 09/19/24 11:07 Antibiotics) ng amoxicillin Allergy Intermediate HIVES Verified 09/19/24 11:07 cefaclor Allergy Intermediate RASH? Verified 09/19/24 11:07 clavulanic acid Allergy Intermediate HIVES Verified 09/19/24 11:07 gabapentin Allergy Intermediate RASH Verified 09/19/24 11:07 nortriptyline Allergy Intermediate Gastrointestinal Verified 09/19/24 11:07 Upset Penicillins Allergy Intermediate HIVES- Verified 09/19/24 11:[address] KUMAR 10/01/11 ropinirole Allergy Intermediate Unknown Verified 09/19/24 11:07 tramadol Allergy Intermediate Gastrointestinal Verified 09/19/24 11:07 Upset clindamycin AdvReac Intermediate Gastrointestinal Verified 09/19/24 11:07 Upset codeine AdvReac Intermediate SEE'S Verified 09/19/24 11:07 THINGS Home Medications Medication Instructions Recorded Confirmed Type citalopram 20 mg tablet 20 mg PO QAM 11/01/23 09/19/24 History cyclosporine 0.05 % eye drops in a 1 drp ophthalmic (eye) Q12H 11/01/23 09/19/24 History dropperette (Restasis) esomeprazole magnesium 40 mg 40 mg PO QAM 11/01/23 09/19/24 History capsule,delayed release rosuvastatin 10 mg tablet 10 mg PO QPM 11/01/23 09/19/24 History clonazepam 0.5 mg tablet 0.75 mg (1.5 x 0.5 mg) PO .qhs #45 06/26/24 09/19/24 Rx tabs acetaminophen 325 mg tablet 325 mg PO QID PRN Pain 08/06/24 09/19/24 History (Tylenol) diclofenac sodium 1 % topical gel 4 g topical QID PRN Pain 08/06/24 09/19/24 History etanercept 50 mg/mL (1 mL) 1 mg subcut WK 08/06/24 09/19/24 History subcutaneous syringe (Enbrel) fluticasone propionate 50 1 spray intranasal BID 08/06/24 09/19/24 History mcg/actuation nasal spray,suspension levocetirizine 5 mg tablet 5 mg PO QAM 08/06/24 09/19/24 History meclizine 12.5 mg tablet 12.5 mg PO BID PRN Dizziness 08/06/24 09/19/24 History glipizide 2.5 mg tablet 2.5 mg PO QAM 09/17/24 09/19/24 History Patient History Medical History Right shoulder pain Back pain History of anesthesia reaction woke up in middle of tubal ligation and vomited History of postoperative nausea and vomiting GERD (gastroesophageal reflux disease) well controlled and stable Depression Anxiety Migraine on occasion History of COVID-19 2020- symptoms resolved Limb tremor left foot > related to back pain RLS (restless legs syndrome) Hypothyroidism resolved was on meds and since d/c'ed Summer 2023 TSH WNL 08/14/24 Rheumatoid arthritis follows rheum stable Diabetes NIDDM Surgical History History of carpal tunnel release right History of cataract surgery left History of myringotomy History of esophagogastroduodenoscopy (EGD) History of colonoscopy History of hysterectomy History of repair of rotator cuff right History of bunionectomy of both great toes Hx of tubal ligation Hx of breast biopsy benign Hx of tonsillectomy Family History Father Cancer Mother Myocardial infarction Parkinson disease Sister Tardive dyskinesia Retarded development following protein-calorie malnutrition Other Colorectal cancer Diabetes Stroke Social History Smoking Status: Former smoker Tobacco Type: Cigarettes Age Quit Using Tobacco: 43; Smoking End Date: ; Second Hand Exposure: No; Do You Dip or Chew Tobacco: No; Tobacco Cessation Education Requested by Patient: No Hx Alcohol Use: No Hx Substance Use: No Preferred Language: [place]dean Communication Ability: Effective Tour Production Supervisor Required: No Beliefs That Will Affect Care: None marital status: Current Living Situation: Spouse current occupational status: retired Other Information That Helps Us Care for You: No Feels Safe at Home: Yes Safety Concerns: Feels Safe At This Time Assistive Devices: Glasses Review of Systems Review of Systems: All systems reviewed & are unremarkable except as noted in HPI & below Physical Exam Physical Exam: constitutional: acute ill, drowsy, responds to verbal stimuli but immediately falls back asleep Head: Normocephalic, Atraumatic Eyes: PERRL, conjunctivae normal, anicteric sclerae ENMT: external ear and nose normal, oropharynx normal dry membranes, oxymask in place Neck: trachea midline, no thyromegaly normal visual inspection Respiratory: decreased respiratory effort, lungs clear to auscultation, no wheeze, rales, rhonchi. Cardiovascular: RRR, no murmur, no edema Vessels: no JVD or carotid bruit Chest: normal inspection of chest Abdomen: normal bowel sounds, soft, nontender, no hepatosplenomegaly Musculoskeletal: no cyanosis or clubbing, diana drain with serosang drainage Skin: no rashes, warm and dry normal turgor Neurologic: PERRL, EOMI, accommodation nl, no face palsy, no dysarthria CN's II-XI intact bilaterally and moves all extremities Psychiatric: alert but drowsy, unable to assess orientation due to confusion, euthymic affect Lymphatic: no cervical or axillary lymphadenopathy : deferred Results & Data Vital Signs (Past 12 Hours) Vital Signs Temp Pulse Pulse Resp BP Pulse Ox O2 Del Method 09/19/24 15:45 36.2 C L 65 16 114/66 97 Nasal Cannula 09/19/24 15:30 68 18 104/52 L 95 Oxymask 09/19/24 15:20 36.3 C L 68 24 111/50 L 98 Oxymask 09/19/24 15:10 70 17 119/51 L 94 Oxymask 09/19/24 15:00 77 19 134/63 99 Oxymask 09/19/24 14:50 75 16 123/53 L 96 Oxymask 09/19/24 14:40 75 14 130/64 90 Oxymask 09/19/24 14:30 77 16 138/67 98 Oxymask 09/19/24 14:20 77 14 145/57 H 99 Oxymask 09/19/24 14:10 36.3 C L 70 16 123/58 L 97 Oxymask 09/19/24 11:05 36.7 C 63 20 129/61 95 Room Air O2 Flow Rate 09/19/24 15:45 2 09/19/24 15:30 2 09/19/24 15:20 2 09/19/24 15:10 2 09/19/24 15:00 5 09/19/24 14:50 5 09/19/24 14:40 5 09/19/24 14:30 5 09/19/24 14:20 5 09/19/24 14:10 5 09/19/24 11:05 Laboratory Results Pre op labs were personally reviewed and interpreted CBC, PTT, PT/INR, BMP, A1C A1C was 7.5 Diagnostic Findings Thoracic Spine X-Ray 09/19/24 12:15 FL thoracic spine 2V CLINICAL HISTORY: T11-T12 DECOMPRESSION AND FUSION COMPARISON STUDY: None. FLUOROSCOPY TIME: 38 seconds. Ka,r: 9.78 mGy FLUOROSCOPIC IMAGES: 2 FINDINGS: Exact localization is not possible given partial visualization of the spine. These images demonstrate a decompression with 2 level bilateral pedicle screw fusion. Hardware is intact. Surgical drain is in place. There are no unexpected radiopaque foreign bodies. IMPRESSION: Fluoroscopy provided during decompression and fusion within the thoracic spine, as described above. ACT 112: Negative or not required by law. Electronically signed by: Joaquin Guillen M.D. 09/19/2024 2:03 PM Medications Administered Current Inpatient Medications Acetaminophen (Acetaminophen 500 Mg Tab) 1,000 mg PO PREOP VINAY Stop: 09/19/24 18:00 Last Admin: 09/19/24 11:30 Dose: 1,000 mg Acetaminophen (Acetaminophen 500 Mg Tab) 1,000 mg PO Q8H PRN PRN Reason: MILD Pain Scale 1,2,3 & Pre PT Stop: 10/19/24 15:54 Hydrocodone Bitart/Acetaminophen (Hydrocodone/Acetamophen 5/325mg Tab) 1 - 2 tab PO Q4H PRN PRN Reason: Pain & Pre PT Stop: 10/03/24 15:54 Al Hydrox/Mg Hydrox/Simethicone (Aluminum/Magnesium Susp 30 Ml Udc) 30 ml PO Q6H PRN PRN Reason: Dyspepsia Stop: 10/19/24 15:54 Atropine Sulfate (Atropine Sulfate 0.1 Mg/Ml 10ml Syr) 0.5 mg IV Q1M PRN PRN Reason: PACU Use-HR<40 &/or Bradycardi Stop: 09/19/24 19:39 Bisacodyl (Bisacodyl 10 Mg Supp) 10 mg MD DAILY PRN PRN Reason: Constipation Stop: 10/19/24 15:54 Celecoxib (Celebrex 200 Mg Cap) 200 mg PO PREOP VINAY Stop: 09/19/24 18:00 Last Admin: 09/19/24 11:30 Dose: 200 mg Cetirizine HCl (Cetirizine Hcl 10 Mg Tablet) 10 mg PO QAM VINAY Stop: 10/20/24 08:59 Citalopram Hydrobromide (Citalopram 20 Mg Tab) 20 mg PO QAM VINAY Stop: 10/20/24 08:59 Clonazepam (Clonazepam 0.5 Mg Tab) 0.75 mg PO HS VINAY Stop: 10/19/24 20:59 Diphenhydramine HCl (Diphenhydramine Capsule 25 Mg Cap) 25 mg PO Q6H PRN PRN Reason: Allergic Rhinitis/Insomnia Stop: 10/19/24 15:54 Ephedrine Sulfate (Ephedrine Sulfate 50 Mg/Ml Amp) 5 mg IV Q5M PRN PRN Reason: PACU Use Only-SBP<90 mmHg Stop: 09/19/24 19:39 Famotidine (Famotidine 20 Mg Tab) 20 mg PO Q12H PRN PRN Reason: Dyspepsia Stop: 10/19/24 15:54 Fentanyl Citrate (Fentanyl Citrate Pf 100 Mcg/2 Ml Vial) 50 mcg IV Q5M PRN PRN Reason: PACU Use Only-Pain Stop: 09/19/24 19:39 Last Admin: 09/19/24 14:41 Dose: 50 mcg Fluticasone Propionate (Fluticasone Propionate Na Spr 16 Gm Btl) 1 sprays NA BID [facility] Stop: 10/19/24 20:59 Hydroxyzine HCl (Hydroxyzine Hcl 25 Mg Tab) 25 mg PO Q8H PRN PRN Reason: Anxiety Stop: 10/19/24 15:54 Lactated Ringer's (Lr) 1,000 mls @ 60 mls/hr IV .[id number] [facility] Stop: 09/19/24 22:39 Last Admin: 09/19/24 11:32 Dose: Not Given Lactated Ringer's (Lr) 1,000 mls @ 15 mls/hr IV .Q24H VINAY Stop: 09/20/24 05:59 Last Infusion: 09/19/24 12:36 Dose: Infused Vancomycin HCl (Vancomycin Hcl) 1,000 mg in 270 mls @ 242 mls/hr IV PREOP VINAY Stop: 09/19/24 18:00 Last Infusion: 09/19/24 15:57 Dose: Infused Promethazine HCl 6.25 mg/ (Sodium Chloride) 50.25 mls @ 204 mls/hr IV ONCE PRN PRN Reason: PACU Use Only-Nausea/Vomiting Stop: 09/19/24 19:39 Acetaminophen (Ofirmev) 1,000 mg in 100 mls @ 400 mls/hr IV Q8H PRN PRN Reason: Pain Rating 1-3 & Pre PT Stop: 09/20/24 15:55 Promethazine HCl (Phenergan) 12.5 mg in 50.5 mls @ 202 mls/hr IV Q6H PRN PRN Reason: Nausea And Vomiting Stop: 10/19/24 15:54 Vancomycin HCl 1,000 mg/ (Sodium Chloride) 250 mls @ 200 mls/hr IV Q12H VINAY Stop: 09/20/24 00:59 Dexamethasone 6 mg/ Syringe 1.5 mls @ 1 mls/min IV DAILY VINAY Stop: 09/22/24 09:02 Influenza Virus Vaccine Quadrival (Do Not Administer Flu Vaccine) 1 each N/A PRN PRN PRN Reason: Notification Stop: 10/19/24 15:54 Lorazepam (Lorazepam 0.5 Mg Tab) 0.5 mg PO Q8H PRN PRN Reason: Sedation/Anxiety Stop: 10/19/24 15:54 Lorazepam (Lorazepam 2 Mg/1 Ml Vial) 0.5 mg IV Q8H PRN PRN Reason: Sedation/Anxiety Stop: 10/19/24 15:54 Magnesium Hydroxide (Magnesium Hydroxide Susp 30 Ml Udc) 30 ml PO Q24H PRN PRN Reason: Constipation Stop: 10/19/24 15:54 Meclizine HCl (Meclizine 12.5 Mg Tab) 12.5 mg PO BID PRN PRN Reason: Dizziness Stop: 10/19/24 15:54 Metoclopramide HCl (Metoclopramide Hcl Inj 5 Mg/Ml 2 Ml Vial) 10 mg IV Q6H PRN PRN Reason: Nausea &/or Vomiting Stop: 10/19/24 15:54 Miscellaneous Information (Pharmacy Glycemic Mgmt Consult) 1 each N/A UD PRN PRN Reason: Consult Stop: 10/19/24 15:54 Naloxone HCl (Naloxone Hcl 0.4 Mg/1 Ml Vial/Carp) 0.1 mg IV Q5M PRN PRN Reason: Oversedation/Resp depression Stop: 10/19/24 15:54 Non-Formulary Medication (Glipizide) 2.5 mg PO QAM VINAY Stop: 10/20/24 08:59 Ondansetron HCl (Ondansetron Inj 2 Mg/Ml 2 Ml Vial) 4 mg IV ONCE PRN PRN Reason: PACU Use Only-Nausea/Vomiting Stop: 09/19/24 19:39 Ondansetron HCl (Ondansetron Inj 2 Mg/Ml 2 Ml Vial) 4 mg IV Q6H PRN PRN Reason: Nausea &/or Vomiting Stop: 10/19/24 15:54 Ondansetron HCl (Ondansetron 4 Mg Od Tab) 4 mg PO Q6H PRN PRN Reason: Nausea Stop: 10/19/24 15:54 Pantoprazole Sodium (Pantoprazole 40 Mg Tab) 40 mg PO QAM VINAY Stop: 10/20/24 08:59 Pneumococcal Polyvalent Vaccine (Do Not Administer Pneumococcal Vaccine) 1 each N/A PRN PRN PRN Reason: Notification Stop: 10/19/24 15:54 Polyethylene Glycol (Polyethylene (Miralax) 17 Gm Pack) 17 gm PO Q6 VINAY Stop: 10/20/24 05:59 Rosuvastatin Calcium (Rosuvastatin Calcium 10 Mg Tab) 10 mg PO QPM VINAY Stop: 10/19/24 20:59 Senna/Docusate Sodium (Docusate Sodium/Senna 50/8.6mg Tab) 2 tab PO HS VINAY Stop: 10/19/24 20:59 Sodium Biphosphate/Sodium Phosphate (Sod Phosphate/Sod Biphosphate Enema 132 Ml Btl) 132 ml MD ONE PRN PRN Reason: Constipation Stop: 10/19/24 15:54 Temazepam (Temazepam 15 Mg Capsule) 15 mg PO QPM [facility] Stop: 10/19/24 20:59 ECG Additional Comments: I have independently reviewed and interpreted patient's admitting EKG which revealed: NSR, 65bpm, qtc 440ms, no st or t wave change
[2024-09-19] MEDS ORDERED: GLUCOSE 10 TAB/TUBE PO PRN ×2 (16:30→17:11)
[2024-09-19] MEDS ORDERED: GLUCAGON FOR INJ 1 MG VIAL SQ PRN ×2 (16:30→17:11)
[2024-09-19] MEDS ORDERED: DEXTROSE 50% 50 ML SYRINGE IV PRN ×2 (16:30→17:11)
[2024-09-19] MEDS ORDERED: GLUCOSE 40% GEL 15 GM TUBE PO PRN ×2 (16:30→17:11)
[2024-09-19] MEDS ORDERED: CARBOHYDRATES FOR HYPOGLYCEMIA PO PRN ×2 (16:30→17:11)
[2024-09-19] MEDS: NALOXONE HCL 0.4 MG/1 ML VIAL/CARP IV PRN (16:33)
[2024-09-19 17:12] LABS: Base Excess VBG 2.9 mEq/L; HCO3 VBG 28 mmol/L; Oxygen Saturation VBG 96.4 %; PCO2 VBG 43 mmHg (38-50); PO2 VBG 85 mmHg; pH VBG 7.42 (7.36-7.41)
[2024-09-19 17:14] LABS: Hematocrit (blood only) 33.6 % (37.0-47.0); Hemoglobin 11.7 g/dl (12.0-16.0); Mean Corpuscular Hgb Conc 34.8 g/dL (32.0-36.0); Mean Corpuscular Volume 89.1 fL (80.0-100.0); Platelet Count 246 K/uL (130-400); RDW Coefficient of Variation 12.3 % (11.5-14.5); RDW Standard Deviation 40.5 fL (36.4-46.3); Red Blood Count 3.77 M/uL (4.20-5.40); White Blood Count 12.16 K/ul (4.8-10.8)
[2024-09-19 17:29] LABS: Basophils # (auto) 0.04 K/uL (0.00-0.20); Basophils % (auto) 0.3 %; Eosinophils # (auto) 0.03 K/uL (0.00-0.50); Eosinophils % (auto) 0.2 %; Immature Granulocytes # (auto) 0.08 K/uL (0.01-0.20); Immature Granulocytes % (auto) 0.7 %; Lymphocytes # (auto) 0.85 K/uL (1.20-3.40); Monocytes # (auto) 0.13 K/uL (0.11-0.59); Monocytes % (auto) 1.1 %; Neutrophils # (auto) 11.03 K/uL (1.40-6.50); Neutrophils % (auto) 90.7 %
[2024-09-19 17:31] LABS: Albumin Globulin Ratio 2.1 (0.9-2); Albumin Level 3.8 gm/dl (3.4-5.0); Bilirubin,Total 0.4 mg/dl (0.2-1.0); Calcium 8.4 mg/dl (8.6-10.3); Creatinine Clr Calc Pharmacy 54.4 ml/min; Globulin 1.8 gm/dl (2.5-4.0); Potassium 4.2 mmol/L (3.5-5.1); Total Protein 5.6 gm/dl (6.0-8.3)
[2024-09-19] MEDS: INSULIN ASPART PER UNIT CHARGE SC SCH (18:08)
[2024-09-19] MEDS: SODIUM CHLORIDE 0.9% 500 ML IV SCH (18:15)
[2024-09-19] MEDS: SODIUM CHLORIDE 0.9% 500 ML IV ONE (18:31)
[2024-09-19] MEDS: ONDANSETRON INJ 2 MG/ML 2 ML VIAL IV PRN (19:24)
[2024-09-19] MEDS: FLUTICASONE PROPIONATE NA SPR 16 GM BTL SCH (20:31)
[2024-09-19] MEDS: DOCUSATE SODIUM/SENNA 50/8.6MG TAB PO SCH (20:31)
[2024-09-19] MEDS: clonazePAM 0.5 MG TAB PO SCH (20:31)
[2024-09-19] MEDS: ROSUVASTATIN CALCIUM 10 MG TAB PO SCH (20:31)
[2024-09-19] MEDS ORDERED: TEMAZEPAM 15 MG CAPSULE PO SCH (21:00)
[2024-09-19] MEDS: VANCOMYCIN HCL 1,000 MG in SODIUM CHLORIDE 0.9% 250 ML IV SCH (23:49)
[2024-09-19] MEDS: ACETAMINOPHEN 500 MG TAB PO PRN (23:49)
[2024-09-20] MEDS: INSULIN ASPART PER UNIT CHARGE SC ONE (02:31)
[2024-09-20] MEDS: POLYETHYLENE (MIRALAX) 17 GM PACK PO SCH (05:04)
[2024-09-20] MEDS: CETIRIZINE HCL 10 MG TABLET PO SCH (08:28)
[2024-09-20] MEDS: PANTOprazole 40 MG TAB PO SCH (08:29)
[2024-09-20] MEDS: CITALOPRAM 20 MG TAB PO SCH (08:30)
[2024-09-20] MEDS: dexAMETHasone 6 MG in SYRINGE 0 ML IV SCH (08:30)
[2024-09-20] MEDS: LANTUS PER UNIT CHARGE SC SCH (08:34)
[2024-09-20 08:59] LABS: Basophils # (auto) 0.02 K/uL (0.00-0.20); Basophils % (auto) 0.1 %; Hematocrit (blood only) 31.4 % (37.0-47.0); Hemoglobin 10.7 g/dl (12.0-16.0); Immature Granulocytes # (auto) 0.12 K/uL (0.01-0.20); Immature Granulocytes % (auto) 0.7 %; Lymphocytes # (auto) 1.36 K/uL (1.20-3.40); Lymphocytes % (auto) 8.3 %; Mean Corpuscular Hemoglobin 30.8 pg (25.0-34.0); Mean Corpuscular Hgb Conc 34.1 g/dL (32.0-36.0); Mean Corpuscular Volume 90.5 fL (80.0-100.0); Mean Platelet Volume 9.4 fL (9.4-12.4); Monocytes # (auto) 1.03 K/uL (0.11-0.59); Monocytes % (auto) 6.3 %; Neutrophils # (auto) 13.95 K/uL (1.40-6.50); Neutrophils % (auto) 84.6 %; Platelet Count 242 K/uL (130-400); RDW Coefficient of Variation 12.5 % (11.5-14.5); RDW Standard Deviation 41.1 fL (36.4-46.3); Red Blood Count 3.47 M/uL (4.20-5.40); White Blood Count 16.48 K/ul (4.8-10.8)
[2024-09-20] MEDS ORDERED: GLIPIZIDE 2.5 MG PO SCH (09:00)
[2024-09-20 09:21] LABS: BUN Creatinine Ratio 21.7 (10-20); Calcium 8.1 mg/dl (8.6-10.3); Creatinine Clr Calc Pharmacy 52.4 ml/min; Potassium 4.2 mmol/L (3.5-5.1)
--- NOTE | 2024-09-20 11:40 | Pharmacy Report ---
Pharmacy Glycemic Short Note 2 - Date of Service September 20, 2024 - Glycemic Short BSG Results (Last 24 hours): 09/19/24 09/19/24 09/19/24 14:13 16:36 16:54 Glucose 212 H POC Glucose 99 202 H 09/19/24 09/20/24 09/20/24 20:23 02:23 07:45 Glucose POC Glucose 210 H 182 H 143 H 09/20/24 09/20/24 08:23 11:23 Glucose 138 H POC Glucose 146 H OUTPATIENT ANTIDIABETIC REGIMEN: * glipizide 2.5 mg daily ASSESSMENT: * 73 year old s/p surgery, POD 1 - pharmacy consulted for glycemic management. Received steroids yesterday and continued on daily dexamethasone this AM. Blood sugars trending up last evening likely due to steroid effects. Will plan to add low dose basal insulin on for this AM to cover ongoing steroids. No change to CF/CR PLAN FOR INPATIENT GLYCEMIC CONTROL: * Hold outpatient oral diabetes medications * Basal insulin * Lantus 8 units once daily - given with IV dexamethasone * Bolus insulin * NovoLog per scale ACHS or Q6hrs while NPO * Goal Range: Low 110 mg/dL - High 140 mg/dL * Correction Factor: 25 mg/dL/unit * Nutritional / Prandial insulin per carb ratio of 1 unit per 9 grams CHO consumed
--- NOTE | 2024-09-20 12:33 | Orthopedic Progress Note ---
Date of Service September 20, 2024 Assessment & Plan (1) Thoracic disc herniation: Plan: Marlin is postoperative day 1 status post T11-T12 decompression and fusion. She is doing great. Will continue with physical therapy. Maintain EDUARDO drain. Continue with pain control. DVT prophylaxis is in the form teds and SCDs. Anticipate discharge home within the next 24 to 48 hours. Admission and Anticipated Discharge Date Admission Date: September 19, 2024 Subjective Marlin is postoperative day 1 status post T11-T12 decompression and fusion. Her rib pain that she had preoperatively has resolved. Also has improvement in some foot symptoms. EDUARDO drain output last shift was 50 cc. H&H is 20 or 10.7 and 31.4 respectively. No other complaints Review of Systems Review of Systems: All systems reviewed & are unremarkable except as noted in HPI & below Physical Exam Physical Exam: She sitting in a chair eating breakfast Alert and oriented x 3 Seen in conjunction with Dr. Oneil strength is intact bilateral lower extremities no acute distress Results & Data Vital Signs (Past 12 Hours) Vital Signs Temp Pulse Resp BP BP Pulse Ox O2 Del Method 09/20/24 11:53 36.8 C 65 16 117/58 L 96 Room Air 09/20/24 07:14 36.9 C 61 18 101/62 96 Room Air 09/20/24 05:37 96 Room Air 09/20/24 02:20 36.9 C 55 L 16 95/58 L 95/46 L 98 Oxymask O2 Flow Rate 09/20/24 11:53 09/20/24 07:14 09/20/24 05:37 09/20/24 02:20 2
--- NOTE | 2024-09-20 14:56 | Hospitalist Progress Note ---
Date of Service September 20, 2024 Assessment & Plan (1) Thoracic disc herniation: (2) Diabetes: (3) Rheumatoid arthritis: Plan Continue current medical plan of care Discussed with patient that attending will manage her pain medications, patient does not really tolerate many pain medications and she understands that Tylenol may be her best option Continue to monitor glucose with insulin coverage Continue other home medications Patient's mental status is back to baseline. Was significantly altered yesterday due to opioid pain medication she received in PACU this is subsequently resolved. Admission and Anticipated Discharge Date Admission Date: September 19, 2024 Subjective Patient wide-awake and sitting up in chair this morning. States pain is tolerable. Physical Exam Physical Exam: Constitutional: Alert, nontoxic HEENT: Mucous membranes moist. Lungs: Clear to auscultation, decreased, no wheezes rales or rhonchi CV: S1-S2, regular Abdomen: Soft, nontender, nondistended Extremities: No significant edema Neuro: No focal deficits Psych: Cooperative, normal mood Results & Data Results & Data Vital Signs (Past 12 Hours) Vital Signs Temp Pulse Resp BP Pulse Ox O2 Del Method 09/20/24 11:53 36.8 C 65 16 117/58 L 96 Room Air 09/20/24 07:14 36.9 C 61 18 101/62 96 Room Air 09/20/24 05:37 96 Room Air Laboratory Results Reviewed imaging, laboratory and diagnostic studies. Pertinent findings as below. WBCs 16.4, suspect due to steroids Hemoglobin 10.7, slightly trending down from yesterday and from preoperative, continue to monitor suspect this is blood loss anemia. Glucose 138, suspect elevated due to steroids in the setting of diabetes
[2024-09-20 19:55] VITALS: RESP 16
[2024-09-21 07:12] VITALS: PULSE 64; TEMP 98.6; O2SAT 97
--- NOTE | 2024-09-21 10:04 | Discharge Summary ---
Date of Service September 21, 2024 Admission HPI Per Admitting Provider This is a 73-year-old female who presents for chronic assistance pain after failing course of nonoperative care is here for surgical invention. Principal Diagnosis Thoracic discrimination with radiculopathy Discharge Data Allergies Allergy/AdvReac Type Severity Reaction Status Date / Time hydromorphone [From Dilaudid] Allergy Severe obtunded Verified 09/19/24 17:09 Sulfa (Sulfonamide Allergy Severe Hallucinati Verified 09/19/24 11:07 Antibiotics) ng amoxicillin Allergy Intermediate HIVES Verified 09/19/24 11:07 cefaclor Allergy Intermediate RASH? Verified 09/19/24 11:07 clavulanic acid Allergy Intermediate HIVES Verified 09/19/24 11:07 gabapentin Allergy Intermediate RASH Verified 09/19/24 11:07 nortriptyline Allergy Intermediate Gastrointestinal Verified 09/19/24 11:07 Upset Penicillins Allergy Intermediate HIVES- Verified 09/19/24 11:[address] KUMAR 10/01/11 ropinirole Allergy Intermediate Unknown Verified 09/19/24 11:07 tramadol Allergy Intermediate Gastrointestinal Verified 09/19/24 11:07 Upset clindamycin AdvReac Intermediate Gastrointestinal Verified 09/19/24 11:07 Upset codeine AdvReac Intermediate SEE'S Verified 09/19/24 11:07 THINGS Consultations 09/19/24 15:55 Consult Hospitalist Routine Procedures Performed Operation Date: 09/19/24 12:15 Actual Procedures p T11-T12 Decompression and Fusion with Spinal Cord Monitoring(Not Applicable) - Josep Oneil DO Ordered Studies 09/19/24 12:15 FL thoracic spine 2V Routine Hospital Course (1) Thoracic disc herniation: Patient underwent thoracic decompression fusion trial as well as taken to orthopedic for postoperative. Post ablation progressed appropriate. Radicular symptoms markedly improved. Ambulating well. EDUARDO drain decreasing. Pain well- controlled. Subsidy discharged home. Discharge orders and instructions from the chart for further review. Total Time Total Time Spent Total Time Spent (In Minutes): 20 minutes Discharge Plan Discharge Items Patient Disposition: Home - Self-Care Reason For Visit: Thoracic Disc Herniation Discharge Diagnosis: Thoracic disc herniation with radiculopathy Activity: As commented below Non-emergency contact: Primary Care Provider Call non-emergency contact if: you have any medication questions Follow-up/Referrals: Suzie Mason PA-C [Primary Care Provider] - (Please call your primary care physician and make a follow up appointment for within 1 week of discharge.) Diet: Regular Addtl Attending Provider Instructions: ACTIVITY RECOMMENDATIONS: SELF CARE INSTRUCTIONS AFTER THORACIC/LUMBAR FUSIONS 1. You may walk to your tolerance. It is good exercise for your legs and back. Expect some back and intermittent leg aches and pains. 2. You may perform "counter-top" level activities (make a sandwich, candace with a project, etc.). 3. No bending or lifting of more than 10 pounds or back twisting of any nature (roll like a log when turning in bed). 4. You may ride in a car for 20-30 minutes at a time. No driving until after your first visit with your doctor. 5. Frequent changes of position and restricting sitting to 30 minutes at a time will help limit the amount of back spasms and stiffness you may experience. 6. You may discontinue the use of ambulatory aids (cane, crutches, etc.) once your strength and confidence allow. 7. 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 Do not take a tub bath, sit in a hot tub or go into a swimming pool until after your first recheck in the office. 8. You may resume previous diet. SPECIAL CARE INSTRUCTIONS: VERY IMPORTANT TO READ AND REVIEW A. Your surgical incision has been closed with a cosmetic suture under the skin that will dissolve in about 6 weeks. In 14 days, you can use a pair of clean scissors and cut the suture that is left outside of the skin at the ends of your incision. 1. The small skin tapes can be removed 7 days after surgery if they have not fallen off by that point. 2. You may keep the wound open to air as much as possible to promote healing after post-op day number 5 unless told otherwise by your doctor. 3. If you think the wound looks like it is becoming infected (redness or worsening drainage) and/or you are experiencing fever, chill or worsening back pain and muscle spasms, contact the office so that we may ev aluate you as soon as possible. B. Complications are uncommon, but please contact us if you have any signs or symptoms of: 1. wound infection (fever higher than 102.5 degrees F, redness, separation of wound, drainage, or increasing pain from the incision) 2. blood clots in legs (pain, swelling, redness and warmth in legs) 3. urinary tract infection (fever higher than 102.5 degrees F, burning upon urination or increased frequency of urination) 4. nerve problems (inability to walk on your toes or heels, numbness, loss of bowel or bladder control) 5. any other symptoms that concern you C. Please call the office at if you have any concerns or questions about your operation or recovery. D. No smoking! Smoking drastically decreases the chance of a solid fusion. E. Do not take any anti-inflammatory medications (Indocin, Advil, Motrin, A spirin, Naprosyn, etc.) as these may inhibit the chance of a solid fusion. Tylenol is okay to take for pain. MANAGING PAIN AFTER SPINAL SURGERY 1. Narcotic medication is intended for short-term use and will be provided for surgical pain. Surgical pain usually lasts for a period of 4-6 weeks. Narcotic medication includes Percocet, Vicodin, Darvocet, Tylenol #3 or Lortab. 2. Longer-term pain is more appropriately treated with non-narcotic medication such as Tylenol ES. 3. Muscle spasm is not appropriately treated with narcotics. Muscle relaxers such as Soma, Flexeril or Skelaxin can be used along with Tylenol ES. 4. Remember that we all live with some "aches and pains". This is not unusual or uncommon after an injury or as we get older. a. Back pain is expected and may include muscle spasms for 4 to 6 weeks after surgery. The pain should gradually improve. If the pain worsens for no apparent reason, please contact the office. b. Intermittent leg pain may also be experienced and should not be concerned about unless it worsens for no apparent reason. If so, please contact the office. 5. We will provide appropriate medication within the normal guidelines of their prescribed use. We will also be very cautious and aware of potential abuse and extended duration of patients' medication needs. a. Pain medications are for your comfort and to assist with sleep and rest so that the tissue can heal. They are not provided in order to return to normal activity and should not be used through the day. To do so or worsening pain at night can result from ongoing tissue damage and development of tolerance to the prescribed medicine. 6. Please allow 2-3 days to process refills. Prescriptions will not be mailed but must be picked up at the office. FOLLOW UP VISIT: Keep your scheduled follow-up appointment. Any questions, please call the office at . Pending Studies at Discharge: No Stand-Alone Forms: My [facility], Smoking Cessation Medications and DC Order Prescriptions: New hydrocodone-acetaminophen 5-325 mg tablet 1 tab PO Q6H PRN (Reason: pain) Qty: 30 0RF Continued cyclosporine [Restasis] 0.05 % dropperette 1 drp ophthalmic (eye) Q12H rosuvastatin 10 mg tablet 10 mg PO QPM citalopram 20 mg tablet 20 mg PO QAM esomeprazole magnesium 40 mg capsule,delayed release(DR/EC) 40 mg PO QAM clonazepam 0.5 mg tablet 0.75 mg PO .qhs Qty: 45 2RF meclizine 12.5 mg Tablet 12.5 mg PO BID PRN (Reason: Dizziness) fluticasone propionate 50 mcg/actuation [place],Suspension 1 spray INTRANASAL BID Rx Instructions: administer into each nostril Enbrel 50 mg/mL (1 mL) Syringe 1 mg SUBCUT WK Patient Comments: mondays levocetirizine 5 mg Tablet 5 mg PO QAM diclofenac sodium 1 % Gel 4 g TOPICAL QID PRN (Reason: Pain) Rx Instructions: apply to single knee, ankle, foot; for foot includes sole/toes/top of foot acetaminophen [Tylenol] 325 mg Tablet 325 mg PO QID PRN (Reason: Pain) glipizide 2.5 mg Tablet 2.5 mg PO QAM Discharge Orders: Discharge Order (Routine); Ordered 09/21/24 Ordered By: Josep Oneil Admission Data Admit Date/Time: 09/19/24 14:00 Attending Provider: Josep Oneil Admit Provider: Josep Oneil Primary Care Provider: Suzie Mason Other Providers: Jesus Martins
[2024-09-21 10:28] VITALS: BP 95/46
--- NOTE | 2024-09-21 11:53 | Hospitalist Progress Note ---
Date of Service September 21, 2024 Assessment & Plan (1) Thoracic disc herniation: (2) Diabetes: (3) Rheumatoid arthritis: Plan Patient doing well this morning, completely recovered from her Acute postoperative pulmonary insufficiency in the setting of anesthesia, post procedural Dilaudid, Fentanyl and altered mental status and is back to her baseline. Patient medically stable for discharge when planned by attending. Patient's glucose slightly elevated due to steroids she received, anticipate this improving as the steroids are discontinued. Upon discharge would recommend just continue her usual outpatient diabetes medications Recommend patient continue her other outpatient medications as prior to admission Admission and Anticipated Discharge Date Admission Date: September 19, 2024 Subjective Patient doing well. Up and ambulatory. States pain is well-controlled Physical Exam Physical Exam: Constitutional: Alert, nontoxic, well-groomed HEENT: Mucous membranes moist. Lungs: Clear to auscultation, decreased, no wheezes rales or rhonchi CV: S1-S2, regular Abdomen: Soft, nontender, nondistended Extremities: No significant edema Neuro: No focal deficits Psych: Cooperative, normal mood Results & Data Results & Data Vital Signs (Past 12 Hours) Vital Signs Temp Pulse Resp BP BP Pulse Ox O2 Del Method 09/21/24 10:26 37.0 C 64 16 108/67 95/46 L 97 09/21/24 07:11 37.0 C 64 16 108/67 97 Room Air Laboratory Results Reviewed glucose
== END 2024-09-21 12:23 | disposition home or self-care (01) | DRG 450 ==
LOC: ASU 10:35 → 3N 14:00